=== PATIENT | male | born 1980 | race African-American/Black ===

== ENCOUNTER 2018-02-09 14:49 | Emergency (ER) | payer BC ==
[~2018-02-09] VITALS: Ht 170.2 cm; Wt 95.3 kg
[2018-02-09] MEDS ORDERED: OMEPRAZOLE 20 M20 M1 PO (14:58)
[2018-02-09 15:12] LABS: URINE BILIRUBIN NEGATIVE (Negative); URINE BLOOD NEGATIVE (Negative); URINE CLARITY CLEAR; URINE COLOR YELLOW; URINE GLUCOSE-RANDOM NEGATIVE (Negative); URINE KETONES NEGATIVE (Negative); URINE LEUKOCYTES-REFLEX NEGATIVE (Negative); URINE NITRITE-REFLEX NEGATIVE (Negative); URINE PROTEIN NEGATIVE (Negative); URINE UROBILINOGEN 0.2 E.U./dl (0.2-1.0)
[2018-02-09 15:27] LABS: ABSOLUTE EOSINOPHILS 0.1 thou/uL (0.0-0.7); ABSOLUTE LYMPHOCYTES 2.3 thou/uL (0.8-5.3); ABSOLUTE MONOCYTES 0.7 thou/uL (0.0-1.2); ABSOLUTE NEUTROPHILS 5.6 thou/uL (1.6-8.1); BASOPHILS 0.5 %; EOSINOPHILS 1.5 %; HEMATOCRIT 47.1 % (42.0-52.0); HEMOGLOBIN 15.9 gm/dL (14.0-18.0); LYMPHOCYTES 26.5 %; MCH 30.7 pg (26.0-34.0); MCHC 33.7 g/dL (28.0-37.0); MCV 91.3 fL (80.0-100.0); MONOCYTES 7.9 %; MPV 8.5 fl. (7.2-11.1); NUCLEATED RBCS 0 /100WBC; PLATELET COUNT* 280 thou/uL (150-400); POLYS 63.6 %; RBC 5.16 mil/uL (4.50-6.00); RDW-CV 13.7 % (10.5-14.5); WBC 8.8 thou/uL (4.0-11.0)
[2018-02-09 15:35] LABS: ANION GAP 9 mmol/L (7-16); BUN 12 mg/dL (7-18); CHLORIDE 104 mmol/L (98-107); CO2 29 mmol/L (21-32); CREATININE 1.1 mg/dL (0.6-1.3); GLUCOSE 66 mg/dL (70-99); POTASSIUM 3.6 mmol/L (3.5-5.1); SODIUM 142 mmol/L (136-145)
[2018-02-09 15:42] LABS: APTT 28.9 Seconds (25.0-31.3); INR 1.1; PROTIME 10.4 Seconds (9.20-11.50)
[2018-02-09 15:46] LABS: ALBUMIN 3.9 g/dL (3.4-5.0); ALKALINE PHOSPHATASE 104 U/L (46-116); NT-PRO BRAIN NAT PEPTIDE 13 pg/mL (<300); SGOT 28 U/L (15-37); SGPT 40 U/L (30-65); TOTAL BILIRUBIN 0.8 mg/dL (<0.1-1.0); TOTAL PROTEIN 8.2 g/dL (6.4-8.2); TROPONIN-I LEVEL <0.06 ng/mL (<0.06)
[2018-02-09 16:32] VITALS: BP 116/55
--- NOTE | 2018-02-10 17:51 | EKG ---
[place] [address] ELECTROCARDIOGRAM REPORT Name: DAKOTA HILLIARD [id number] Admission: 02/09/18 Attend Phys: Discharge: 02/09/18 Date of : 78 Report #: [id number] THIS REPORT FOR: //name// 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
[2018-03-30] MEDS ORDERED: ERYTHROMYCIN E3.5 G2 OPHTHALMIC (18:25)
== END 2018-02-09 16:33 | disposition home or self-care (01) ==
LOC: M.ERS 14:49
PROVIDERS: Family Medicine
DX: R42 Dizziness and giddiness (principal)